=== PATIENT | female | born 1990 | race Hispanic/Latino ===

== ENCOUNTER 2017-11-18 06:40 | Day surgery (SDC) | payer BC ==
[2017-11-18 07:29] VITALS: BMI 18.5
[2017-11-18 08:17] LABS: HEMOGLOBIN 13.5 g/dL (12.0-16.0); MEAN CORPUSCULAR HEMOGLOBIN 28.2 pg (27.0-31.0); RBC 4.8 Mil/uL (3.80-5.20); RED CELL DISTRIBUTION WIDTH 13.3 % (11.5-14.5); WHITE BLOOD COUNT 6.7 K/uL (4.8-10.8)
[2017-11-18] MEDS ORDERED: Propofol 10 mg/ml Inj (20 ML) ONE (08:21)
[2017-11-18] MEDS ORDERED: Succinylcholine 200 mg/10 ml Inj IV ONE (08:22)
[2017-11-18] MEDS ORDERED: Midazolam 2 MG/2 ML VIAL ONE (08:22)
[2017-11-18] MEDS ORDERED: ePHEDrine 50 mg/ml Inj ONE (08:22)
[2017-11-18] MEDS ORDERED: Rocuronium 10 mg/ml (5 ml) ONE (08:22)
[2017-11-18] MEDS ORDERED: Lactated Ringer's 1,000 ML IV ONE ×2 (08:45→08:55)
[2017-11-18] MEDS: Bupivacaine 0.5% Inj(30mL) ONE ×2 (09:12→09:25)
[2017-11-18] MEDS ORDERED: Dexamethasone 4 mg/1 ml ONE (09:23)
[2017-11-18] MEDS ORDERED: Desflurane Inhalation Anesthetic Liq (240 ml) ONE (10:27)
[2017-11-18] MEDS ORDERED: Silver Nitrate Topical - Stick ONE (10:42)
[2017-11-18] MEDS ORDERED: DiphenhydrAMINE 50 mg/ml Inj IVP PRN (11:07)
[2017-11-18] MEDS ORDERED: Oxycodone/Acetaminophen 5/325 mg Tab PO PRN (11:12)
[2017-11-18] MEDS: Lactated Ringer's 1,000 ML IV SCH ×2 (12:17→12:30)
[2017-11-18 14:56] VITALS: O2SAT 100
[2017-11-18 15:44] VITALS: RESP 18; TEMP 97.6
[2017-11-18 16:47] VITALS: BP 112/67; PULSE 102
--- NOTE | 2017-11-22 10:40 | PCM.OP ---
Operative Report - Operative Report Date of Surgery/Procedure: 11/18/17 Time of Surgery/Procedure: 10:00 Surgeon: Dr. El Santillan [employer] Coach: Dr. bettie Hernandez Anesthesia/Sedation: general/Dr. Jacobson Pre-Operative Diagnosis: endometriosis and abdominal pain Post-Operative Diagnosis: same Indication for Surgery: as above Operative Findings: as above Procedure/Operation Description: 1-appendectomy. Brief Histroy: This is a 27 year old woman with abdominal pain and endometriosis who had already been brought to the operating room by Dr. Hernandez when he noted involvement of the appendix. Intraoperative general surgery consultation was requested. Description of the Procedure: Dr. Mary smith already initiated the robotic procedure (separate dictation Dr. Hernandez). after takoing control of the robotic console the appnedix was retracted anteriorly with exposure of the appednix messentery. With electrocautery the mesnetery was dessicated with particular attention to the appendiceal artery. The appendix was dissected to the base of the cecum and with 3-0 PDS endoloop the structure was ligated. The sopecimen was cut with scissors and the remnant opening was dessicated with electrocautery. The specimen was marked and sent to pathology separately. Hemostasis was ddeemed adeqaute. The operation was then turned back to Dr. Hernandez (separate dictation Dr. Hernandez). Estimated Blood Loss: 2 cc Complications: none Discharge & Condition: stable
--- NOTE | 2017-11-23 12:37 | OP ---
PROCEDURE DATE: 11/18/2017 PREOPERATIVE DIAGNOSES: Pelvic pain, bladder pain, dysmenorrhea, and severe dyspareunia, rule out endometriosis. POSTOPERATIVE DIAGNOSES: Pelvic pain, bladder pain, dysmenorrhea, and severe dyspareunia, rule out endometriosis plus pelvic endometriosis and interstitial cystitis. PROCEDURE PERFORMED: Cystoscopy with bilateral ureteral catheterization and injection of IC green dye, hysteroscopy, robotic excision of endometriosis with left ureterolysis,IUD removal and separately to be dictated by Dr. Santillan is an appendectomy. SURGEON: Aniceto Hernandez MD SUPERVISOR BLASTING: El Santillan MD ESTIMATED BLOOD LOSS: Minimal. COMPLICATIONS: None. SPECIMEN: Endometriosis, tissue from the left pelvic side wall, left ureteral area, left ovarian fossa, posterior cervix and right perirectal area. INDICATION FOR THE PROCEDURE: The patient is a 27-year-old female with a long history of severe pelvic pain, inability to have intercourse secondary to the pain, bladder pain, and severe menstrual cramps not responding to either medical therapy, physical therapy, and medication. Prior to the surgery, the patient was counseled with regards to risks and benefits of the procedure with the likelihood that the procedure may ameliorate her problems and also she was counseled with regards to the risks and complication of the procedure including bleeding, infection, bladder and bowel injury. After the patient reaffirmed a desire to move forward with the surgery, she signed the consent and was taken to the OR. DESCRIPTION OF PROCEDURE: After adequate anesthesia was obtained, the patient was placed in a dorsal lithotomy position and she was prepped and draped. The surgeon gowned and gloved.. Extreme attention was placed in avoiding any sort of hyperextension or hyperflexion of the patient's joints and also every area that was prone to, pressure was extensively padded. A time-out was obtained according to the hospital policy and then the procedure started. A cystoscope was placed directly into the bladder under direct visualization. The bladder was distended with 200 mL of of saline. The bladder wall appeared to be thickened and also evidence of microscopic hemorrhages and increased vascularity were noticed. All these consistent with the presence of interstitial cystitis. In fact the findings were diagnostic of interstitial cystitis. At this point, both ureteral ostia were seemed to be in the proper anatomical position. The left ureter was catheterized utilizing a 5-Chinese open-ended catheter all the way to the distal ureter and 5 mL of IC green were injected. The catheter was retracted. At this point, on the right hand side again the ureter was catheterized with an open-ended catheter and 5 mL of IC green was also injected and the catheter was retracted. At this point, a Rollins was placed into the bladder. Attention was in the vaginal area again where speculum was placed in the vagina. The patient had an IUD, as per our prior discussion the plan was to remove it. The iud was identified, grasped and removed and sent for cultures. A hysteroscopy was performed by gently dilating the cervix and inserting the hysteroscope. Thecavity appeared truman. At this point, an open laparoscopy was performed with extreme care and the peritoneum was entered in the blunt fashion and cannula was then inserted and abdomen was insufflated. The findings were as follows, there was evidence of endometriosis implants in the left pelvic side wall, posterior cervix, and anterior aspect of the uterus and the right perirectal area. The appendix also appeared to have some adhesions was pulled downwards. The da Zulma robot was brought into the field and after inserting additional cannulas in right upper quadrant, left upper quadrant, and left mid quadrant, da Zulma robot was docked. At this point, this procedure was started, first part involved the left pelvic side wall where after identifying the ureter, the retroperitoneal space was entered. The ureter was lateralized and a large area of peritoneum containing endometriosis was excised. Again, in the left ovarian fossa, similarly an area of endometriosis was excised circumferentially with great care to avoid the vessels. The posterior cervix also had some inflammatory areas in the posterior cervical anterior rectal area. This area was also excised with great care not to damage the anterior rectum. At this point, an area of endometriosis was identified in the right perirectal area deep in the cul-de-sac, it was elevated and excised without injuring the rectum. At this point, an additional area was identified in the right uterosacral ligament and it was excised. Once this procedure was done, it was checked for hemostasis and appeared to be excellent. The consult was handed over to Dr. Santillan from general surgery who proceeded with the appendectomy that he will dictate separately. At this point, after procedure was done, it was checked for hemostasis and appeared to be excellent. The robot was undocked. The incisions were closed after de-sufflating the abdomen and removing the instruments utilizing 0 PDS for fascia and 4-0 Monocryl for the skin. At the end of the procedure, all tapes and instrument counts were correct. The patient tolerated the procedure well, was taken to recovery room in excellent condition. Aniceto Hernandez MD MTDD
== END 2017-11-18 17:40 | disposition home or self-care (01) ==
LOC: H.OPSURG 06:40
PROVIDERS: ATTEND Obstetrics & Gynecology Reproductive Endocrinology
DX: N80.1 Endometriosis of ovary (principal); N83.202 Unspecified ovarian cyst, left side; N94.6 Dysmenorrhea, unspecified; R10.2 Pelvic and perineal pain; N94.10 Unspecified dyspareunia; R39.89 Other symptoms and signs involving the genitourinary system
CPT/HCPCS: 36415; 44970; 58301; 58662; 85027; 86850; 86900; 87070; 87101; 88304; 88305; C1729; J0330; J0690; J1100; J1170; J2001; J2250; J2405; J2704; J2765; J3010; J7030; J7040; J7120